=== PATIENT | female | born 1965 | race Caucasian/White ===

== ENCOUNTER 2022-02-23 17:06 | Emergency (ER) | payer SELFPAY ==
[~2022-02-23] VITALS: Ht 172.7 cm; Wt 54.4 kg
[2022-02-23] MEDS ORDERED: NAPROXEN250 MG PO (18:49)
[2022-02-23] MEDS ORDERED: TYLENOL325 M1 PO (18:49)
[2022-02-23] MEDS ORDERED: Motrin,Rufen400 MG PO (19:05)
== END 2022-02-23 19:09 | disposition home or self-care (01) ==
LOC: ED 17:06
DX: S29.9XXA Unspecified injury of thorax, initial encounter (principal); X58.XXXA Exposure to other specified factors, initial encounter; Y93.89 Activity, other specified; Y92.89 Other specified places as the place of occurrence of the external cause; Y99.8 Other external cause status